=== PATIENT | male | born 1945 | race Caucasian/White ===

== ENCOUNTER 2024-01-24 01:22 | Day surgery (SDC) | payer MEDICARE, SELFPAY ==
--- NOTE | 2024-01-15 08:50 | PC.NURSE ---
Addendum entered by Lynn Green RN 01/15/24 10:20: HOLD ELIQUIS 4 DAYS PRIOR TO SURGERY PER DR MENSAH LAST DOSE 01/19/24 PT AWARE Original Note: Report to the Outpatient Waiting Room, entrance under the green pavilion located off [facility], at time _11:30 AM on date 01/24/24 . Planned Procedure Time: 1:30 PM .? Time changes happen often and if your time is changed the preop area will call you the afternoon before. - You and your visitor will be asked to self-screen and do not enter if you have any COVID symptoms. Please call surgeon if you need to reschedule. - A mask is optional within the hospital at this time. Patients may have clear liquids (water, carbonated beverages, clear teas, apple juice) until 3 hours prior to surgery ( 10:30 AM)with a maximum of 20 ounces. - No food from midnight until time of surgery and no smoking - Infants may have breast milk until 4 hours before surgery, formula 6 hours prior to surgery. - Children will be allowed to drink immediately following surgery.? If applicable, please bring a bottle or sippy cup to assist with drinking. Juice, water, soda, and popsicles are readily available.? For infants on formula, please bring formula the day of surgery.? Pacifiers are allowed. Take only the following medications with a SIP of water on the morning of surgery: LEVOTHYROXINE,METOPROLOL DO NOT STOP ANY OF YOUR OTHER PRESCRIPTION MEDICATIONS PRIOR TO SURGERY EXCEPT THE FOLLOWING Medications to discontinue per physician ____HOLD _ELIQUIS 7 DAYS PRE OP PER DR HOLLIDAY .LAST DOSE 01/16/24 Please no make-up, nail portuguese, hairspray, perfume, deodorant, or body powder the day of surgery.? No jewelry (including any body piercings) or valuables the day of surgery, leave them at home.? Please take a shower or bath the night before, or the morning of, surgery with an antibacterial soap.? Wear comfortable, loose fitting clothing.? Children are encouraged to wear pajamas. - Jewelry must be removed prior to entering the operating room.? Rings and piercings that are not removed may be cut off. - The hospital will not accept responsibility for valuables.? - Please leave all valuables, including medications, at home the day of surgery. If you are going home after surgery, a licensed driver merchandiser must drive you home.? - NO public transportation without another adult if you receive anesthesia. - We recommend that an adult stay with you for 24 hours following discharge. - We also recommend that you do not drive, make important decision, drink alcoholic beverages, or take any drugs that were not prescribed by your health care provider for at least 24 hours after your discharge time. For Pediatric surgeries, we recommend two adults accompany the child home. Follow any additional instructions given to you from your surgeon. Telephone instructions given to __PATIENT and asked if any additional questions and then verbalized understanding. Patient advised to call surgeon office or pre surgery nurse liaison [phone] if any additional questions.
[2024-01-15 09:01] VITALS: BMI 35.9
[2024-01-24] VITALS (9 sets, daily range): BP systolic 109–164; BP diastolic 61–80; PULSE 56–68; RESP 11–18; TEMP 36.3–37; O2SAT 93–98
--- NOTE | ~2024-01-24 | XR_ITS ---
INTRAOPERATIVE FLUOROSCOPY: CLINICAL HISTORY: 78 years old Male; T9 LAMINOTOMY FOR SPINAL CORD STIMULATOR PLACEMENT PROCEDURE COMMENTS: Limited intraoperative fluoroscopy of the thoracic spine was performed. CUMULATIVE DOSE: 26 mGy FLUOROSCOPY TIME: 43 seconds FINDINGS/IMPRESSION: Please refer to operative note for further details. Reviewed, dictated and finalized at location A. [employer]SEM[employer]ER
[2024-01-24 12:56] LABS: Glucose Point of Care 118 mg/dl (65-105)
[2024-01-24] MEDS: LACTATED RINGERS 1,000 ML 30 ML IV CONT (13:00)
--- NOTE | 2024-01-24 13:11 | P.HP_ITS ---
H&P: HPI History of Present Illness Date/Time: 01/24/24 13:11 Chief Complaint: Post laminectomy syndrome Narrative: Mr. Esquivel is a 78-year-old male with history of atrial fibrillation, diabetes, hypertension, prostate cancer, and a defibrillator who was referred by Dr. Anderson for placement of a permanent spinal cord stimulator. The patient has a long history of lower back pain for which he has had previous surgery in the form of a laminectomy over 10 years ago. He did well from that surgery but has developed progressive low back pain with standing or any physical activity. He has no pain at rest. He denies any pain that radiates into his legs. He denies any paresthesias in the legs. He had seen Dr. Alfonso a year ago who recommended conservative treatments and did not feel optimistic that a large fusion surgery would be beneficial for him. The patient attempted a number of injections with pain management without improvement. He did physical therapy as well. He had a spinal cord stimulator trial performed with Pax[employer] which gave him about 50% relief of his symptoms. He notably follows with iuss acoustic analyst Dr. Grzegorz Mccord. He takes Eliquis because of his AFib and the defibrillator. His diabetes is well controlled with a recent A1c around 6%. He was treated in the past for prostate cancer with radiation without evidence of recurrence. Review of Systems Review of Systems: All systems reviewed & are unremarkable except as noted in HPI and below PMFSH Social History Social History Smoking packs per day: 1 Smoking cigarettes per day: 20.0 Years smoked: 10 Smoking pack-years: 10.00 Smoking status: Former smoker Tobacco type: cigarettes Smoking end date: 03/13/73 Alcohol intake: current Drinks per week: 2 Do You Feel Safe in your Home?: Yes Lack of Transportation: No Lack of Food: Never True Current Housing: I Have Housing Concerned About Future Housing: No Difficulty Paying Gas/Electric Bills: No Difficulty Paying for Meds: No Currently Unemployed: No Education: High School Diploma/GED Difficulty w/ Childcare or Family Care: No Living arrangements: with family Spiritual care concerns: No Meds Home Medications and Allergies Home Medications Medication Instructions Recorded Confirmed Type amiodarone 200 mg tablet 200 mg PO HS 12/20/23 01/15/24 History apixaban 5 mg tablet (Eliquis) 5 mg PO BID 12/20/23 01/15/24 History atorvastatin 10 mg tablet 10 mg PO EVERY OTHER DAY 12/20/23 01/15/24 History famotidine 20 mg tablet 20 mg PO BID 12/20/23 01/15/24 History lisinopril 2.5 mg tablet 2.5 mg PO HS 12/20/23 01/15/24 History metformin 500 mg tablet 500 mg PO BID 12/20/23 01/15/24 History metoprolol tartrate 25 mg tablet 25 mg PO BID 12/20/23 01/15/24 History acetaminophen 500 mg capsule 1,000 mg PO Q6H PRN Pain 01/15/24 01/15/24 History levothyroxine 112 mcg tablet 112 mcg PO DAILY 01/15/24 01/15/24 History Allergies Allergy/AdvReac Type Severity Reaction Status Date / Time No Known Allergies Allergy Verified 01/24/24 13:11 Vital Signs Vital Signs - 24 hr 01/24/24 13:00 Temperature 97.3 F L Pulse Rate 60 Respiratory Rate 14 Blood Pressure 164/80 H Pulse Oximetry 98 Oxygen Delivery Room Air Exam Narrative: Pain to palpation of lower lumbar region Unless otherwise stated above, the patient's physical exam is as follows: General: -Well developed and well nourished. No a cute distress. Cooperative with exam. Mental status: -Awake and oriented to person, place, an d time. Affect is normal. -Fund of knowledge appropriate -Recent and remote memory are intact -Attention span and concentration appear normal -Language function is normal -There is no evidence of aphasia in conv ersational speech. Cranial nerves: -CN II: Visual velasquez full to bedside co nfrontation -CN III, IV, : Pupils equal, round, an d reactive to light; extraocular movements, no ptosis, no nystagmus -CN V: Facial sensation intact in V1 thr ough V3 distributions -CN VII: Face symmetric -CN VIII: Hearing intact to conversation al speech -CN IX, X: Palate elevates symmetrically ; normal phonation -CN XI: Symmetric full strength of henderson ocleidomastoid and trapezius muscles -CN XII: Tongue protrudes midline Integumentary: -No obvious skin lesions or masses Motor: -Muscle tone normal without spasticity o f flaccidity. No atrophy. No fasciculations. -No pronator drift -Right upper extremity: deltoid 5/5, bic eps 5/5, triceps 5/5, wrist extensors 5/5, wrist flexors 5/5, intrinsics 5/5 -Left upper extremity: deltoid 5/5, toño ps 5/5, triceps 5/5, wrist extensors 5/5, wrist flexors 5/5, intrinsics 5/5 -Right lower extremity: iliopsoas 5/5, q uadriceps 5/5, hamstrings 5/5, tibialis anterior 5/5, gastroc-soleus 5/5, EHL 5/5 -Left lower extremity: iliopsoas 5/5, qu adriceps 5/5, hamstrings 5/5, tibialis anterior 5/5, gastroc-soleus 5/5, EHL 5/5 Sensory: -Intact to light touch throughout -Normal proprioception throughout Reflexes: -1-2+ DTR's throughout -No Cochran's, clonus, or Babinski bilat erally Musculoskeletal: -Lumbar spine: no tenderness to palpatio n, no pain, and normal lumbosacral spine movements -Kbftdrlc-wrf-vprcw test negative -Hip: normal range of motion, no crepitu s bilaterally. No pain reproduced on CIRO or FAIR testing bilaterally -Knee: no instability, subluxation or la xity, and no crepitus bilaterally I personally reviewed the MRI lumbar spine from December 2022 which shows a flat back. There is evidence of a previous laminectomy at L4-5. There is [id number] central stenosis at L3-4. Assessment and Plan Assessment and plan (1) Post laminectomy syndrome: Code(s): M96.1 - Postlaminectomy syndrome, not elsewhere classified Status: Acute Plan Mr. Esquivel is a 78-year-old male with a progressive history of lower back pain which has been resistant to physical therapy and multiple interventions with pain management. He recently had a trial of spinal cord stimulation with [employer]otron[employer] from which he got about 50% relief of his symptoms. He is interested in pursuing permanent implantation. I reviewed his MRI from December [address] Cuenca that there is not an obvious surgical solution to the spine itself that would guarantee any relief of his symptoms. Therefore, I think it is reasonable to proceed with surgery. According to the notes, they were stimulating in the T7/T8 region, so I will plan for surgery in the form of a T9 laminotomy for placement of spinal cord stimulator. He does not currently have a preference as to which side the battery is located. We discussed surgery in detail including risks, expected recovery, and restrictions after surgery.
--- NOTE | 2024-01-24 13:13 | WPDHPUPDATE1 ---
History and Physical Update Update Date/Time: 01/24/24 13:13 History and Physical has been reviewed, including an updated exam of the patient. There are NO changes in the patient's condition. Risks, benefits, and alternatives have been discussed and questions answered. Patient agrees to proceed with procedure.
--- NOTE | 2024-01-24 13:20 | WPDANESEPPF ---
Anes - Initial Pre Proc Eval Procedure: Operation Date: 01/24/24 13:30 Proposed Procedures p T9 Laminotomy for Spinal Cord Stimulator Placement - Tracy Walker MD Date/Time: 01/24/24 13:20 Surgeon: Tracy Walker MD Pre Op Diagnosis: post laminectomy syndrome Patient Data Age: 78 Gender: M Height: 1.78 m Weight: 112.6 kg Last Vital Signs Temp 97.3 F L 01/24/24 13:00 Pulse 60 01/24/24 13:00 Resp 14 01/24/24 13:00 BP 164/80 H 01/24/24 13:00 Pulse Ox 98 01/24/24 13:00 O2 Del Method Room Air 01/24/24 13:00 Allergies Allergy/AdvReac Type Severity Reaction Status Date / Time No Known Allergies Allergy Verified 01/24/24 13:11 Home Medications Medication Instructions Recorded Confirmed Type amiodarone 200 mg tablet 200 mg PO HS 12/20/23 01/15/24 History apixaban 5 mg tablet (Eliquis) 5 mg PO BID 12/20/23 01/24/24 History atorvastatin 10 mg tablet 10 mg PO EVERY OTHER DAY 12/20/23 01/15/24 History famotidine 20 mg tablet 20 mg PO BID 12/20/23 01/15/24 History lisinopril 2.5 mg tablet 2.5 mg PO HS 12/20/23 01/15/24 History metformin 500 mg tablet 500 mg PO BID 12/20/23 01/15/24 History metoprolol tartrate 25 mg tablet 25 mg PO BID 12/20/23 01/24/24 History acetaminophen 500 mg capsule 1,000 mg PO Q6H PRN Pain 01/15/24 01/15/24 History levothyroxine 112 mcg tablet 112 mcg PO DAILY 01/15/24 01/24/24 History Laboratory Tests 01/24/24 12:53 POC Capillary Glucose 118 H mg/dl (65-105) Patient hx anesthesia problems: none Family hx anesthesia problems: none Results Review: All pre-operative results and documents have been reviewed as part of the pre-operative evaluation. [facility] Social History Social History Smoking packs per day: 1 Smoking cigarettes per day: 20.0 Years smoked: 10 Smoking pack-years: 10.00 Smoking status: Former smoker Tobacco type: cigarettes Smoking end date: 03/13/73 Alcohol intake: current Drinks per week: 2 Do You Feel Safe in your Home?: Yes Lack of Transportation: No Lack of Food: Never True Current Housing: I Have Housing Concerned About Future Housing: No Difficulty Paying Gas/Electric Bills: No Difficulty Paying for Meds: No Currently Unemployed: No Education: High School Diploma/GED Difficulty w/ Childcare or Family Care: No Living arrangements: with family Spiritual care concerns: No Anes - Eval Final PreProcedure Day of Procedure 01/24/24 13:20 Patient weight: obese Heart: regular rate and rhythm Lungs: clear to auscultation Airway: Mallampati scale class III Neurological: alert and oriented Last oral intake: >/= 8 hours ASA classification: III Emergent: no Anesthetic plan: proceed Anesthesia type and monitoring: general ETT and standard monitoring Results Review: All pre-operative results and documents have been reviewed as part of the pre-operative evaluation. Informed Consent: The patient's anesthetic plan and its attendant risks and benefits were discussed with the patient/family/POA. Questions were solicited and answers provided to the satisfaction of the patient/family/POA.
[2024-01-24] MEDS: ceFAZolin 2 GM/D5W 50 ML 2 GM/50 ML BAG IVPB (13:37)
[2024-01-24] MEDS: BUPIVACAINE/EPINEPHRINE 0.5% 50 ML VIAL 30 ML INFILTRATE (14:20)
[2024-01-24] MEDS: VANCOMYCIN HCL 1,000 MG VIAL 1000 MG TOPICAL (14:20)
--- NOTE | 2024-01-24 15:29 | W.PM.PROC2 ---
Procedure Note - Detailed Date of Procedure 01/24/24 Pre-op Diagnosis post laminectomy syndrome Post-op Diagnosis Same Procedure Performed 1. T9 laminotomy for placement of paddle spinal cord stimulator 2. Placement of generator in right upper gluteal region 3. Use of C-arm for fluoroscopy Surgeon Tracy Walker MD Document Review Attorney Nelson Anesthesia General Description of Procedure The patient was brought to the OR where general anesthesia was induced. The patient was turned prone onto the OR table with Dennis frame. All pressure points were padded. C-arm was used to plan the level of the thoracic incision. A right gluteal incision was also planned for the generator site. The surgical site was prepped and draped in usual sterile fashion. Perioperative antibiotics were given. Local anesthesia was injected into the planned incisions. A 10-blade scalpel was used to open the right gluteal incision. A bovie was used to create a subcutaneous pocket inferiorly. The pocket was packed with a wet Raytec. Next, the thoracic incision was opened with the scalpel, and the soft tissue was dissected with the bovie. The laminae were exposed bilaterally at T9. This was confirmed with the C-arm. A laminotomy was performed at the top of T9 with the Yohanell and parveenons. The laminotomy opening was widened laterally. A curved currette, Woodsen, and 3-penfield were used to separate the dura from the laminae. The paddle stimulator was then placed into the epidural space. C-arm verified placement into T7, matching areas of stimulation from the trial. Anchors were placed into the leads which were attached to the muscle. The leads were tunneled to the gluteal incision. The leads were connected to the generator which was then placed into the gluteal pocket. The generator was secured with a silk suture. All incisions were irrigated copiously. Hemostasis was ensured in the thoracic incision with the bipolar and Surgiflo. Stimulon beads were placed into both incisions. The fascia was closed with 0 vicryl. The dermis was closed with 2-0 and 3-0 vicryl. The dermis at the generator site was closed with 2-0 vicryl. The skin was closed in both incisions with 4-0 monocryl. Dermabond was then placed. The patient was returned supine, extubated, and transferred to PACU. Billing codes: 36099, 91706 Drains No Packing No Pathology None sent Complications None Condition Stable Disposition PACU [facility] Billing Surgery - Charge Forward: Surgery Billing
--- NOTE | 2024-01-24 15:33 | SUR.PHASEI ---
Patients AICD was was turned back on via Remote Integrator Jonnie. oJnnie confirmed that the AICD was turned back on and working properly with [employer] HERNANDEZ.
[2024-01-24 16:15] LABS: Glucose Point of Care 119 mg/dl (65-105)
== END 2024-01-24 17:37 | disposition home or self-care (01) ==
PROVIDERS: Visit Provider Neurological Surgery
PROC: (CPT 63685; principal; 2024-01-24 13:30)
DX: M96.1 Postlaminectomy syndrome, not elsewhere classified (principal); I48.91 Unspecified atrial fibrillation; E11.9 Type 2 diabetes mellitus without complications; I10 Essential (primary) hypertension; Z85.46 Personal history of malignant neoplasm of prostate; Z95.810 Presence of automatic (implantable) cardiac defibrillator; Z79.01 Long term (current) use of anticoagulants; Z79.84 Long term (current) use of oral hypoglycemic drugs; Z87.891 Personal history of nicotine dependence; E66.9 Obesity, unspecified; Z68.35 Body mass index [BMI] 35.0-35.9, adult
CPT/HCPCS: 63685; 63655; 82948; 99199; C1767; C1778; J0690; J3010; J3370; J7120